=== PATIENT | female | born 1970 | race African-American/Black ===

== ENCOUNTER 2017-06-15 14:26 | Observation (INO) | payer MEDICAID ==
[~2017-06-15] VITALS: Ht 147.3 cm; Wt 64.4 kg
[2017-06-15] MEDS ORDERED: SODIUM CHLORIDE 0.9% 1,000 ML IV ONE (14:42)
[2017-06-15] MEDS ORDERED: IPRATROPIUM BROMIDE (0.02%) 0.5MG/2.5ML NEB HHN STA (14:44)
[2017-06-15] MEDS ORDERED: METHYLPREDNISOLONE SOD SUCC 125 MG/2 ML VIAL IV STA (14:44)
[2017-06-15] MEDS ORDERED: ALBUTEROL (0.083%) 2.5MG/3ML NEB HHN STA (14:44)
[2017-06-15] MEDS ORDERED: SODIUM CHLORIDE 0.9% 1000ML BAG (SEPSIS BOLUS) IV ONE (14:45)
[2017-06-15 15:41] LABS: HEMATOCRIT. 35.2 % (36.0-48.0); HEMOGLOBIN. 11.9 g/dL (12.0-16.0); MEAN CORPUSCULAR HEMOGLOBIN 29.2 pg (28.0-32.0); MEAN CORPUSCULAR VOLUME 86.1 fL (81.0-99.0); MEAN PLATELET VOLUME 8.4 fl (7.4-10.4); PLATELET 226 x1000/uL (130-400); RED CELL DISTRIBUTION WIDTH 13.2 % (11.6-14.6)
[2017-06-15 15:46] LABS: CHLORIDE 86 mEq/L (98-107)
[2017-06-15 15:47] LABS: HCG SCREEN NEGATIVE; PROTHROMBIN TIME 10.7 sec (9.4-11.6)
[2017-06-15] MEDS ORDERED: PANTOPRAZOLE SODIUM 40 MG/VIAL IV STA (15:53)
[2017-06-15] MEDS ORDERED: ACETAMINOPHEN 650MG SUPP PR ONE (16:00)
[2017-06-15 16:02] LABS: PLATELET ESTIMATE NORMAL
[2017-06-15] MEDS ORDERED: VANCOMYCIN 1 G PREMIX 200 ML IV ONE (16:15)
[2017-06-15] MEDS ORDERED: PIPERACILLIN/TAZ 3.375G PREMIX 50 ML IV ONE (16:15)
[2017-06-15 16:42] LABS: CLARITY URINE CLOUDY (CLEAR); COLOR URINE YELLOW (YELLOW); KETONES URINE NEGATIVE (NEGATIVE); LEUKOCYTE ESTERASE URINE 3+ (NEGATIVE); NITRITE URINE NEGATIVE (NEGATIVE); OCCULT BLOOD URINE 2+ (NEGATIVE); PROTEIN URINE 1+ (NEGATIVE); SPECIFIC GRAVITY URINE 1.017 (1.005-1.030); UROBILINOGEN URINE 0.2 E.U./dL (0.2-1.0)
[2017-06-15 22:00] VITALS: BP 129/60
[2017-06-15] MEDS ORDERED: DEXT 5%/0.45% NACL 1000ML 1,000 ML IV SCH (22:00)
[2017-06-15] MEDS ORDERED: SODIUM CHLORIDE 10% FOR INH 15ML VIAL NEB INH SCH (22:15)
[2017-06-15] MEDS ORDERED: IPRATROPIUM/ALBUTEROL 0.5-3(2.5)MG/3ML NEB HHN STA (22:17)
[2017-06-15 22:42] LABS: BG BASE EXCESS 5.2 mmol/L (-2.0-2.0); BG CARBOXYHEMOGLOBIN 0.3 % (0.5-1.5); BG DEOXYHEMOGLOBIN 3.2 % (0.0-5.0); BG FRACTION INSPIRED OXYGEN 30; BG HCO3 ACT 30.6 mmol/L (22.0-26.0); BG METHEMOGLOBIN 0.2 % (0.0-1.5); BG OXYGEN SATURATION 96.8 % (92.0-98.5); BG OXYHEMOGLOBIN 96.3 % (94.0-97.0); BG PCO2 48.6 mmHg (35.0-45.0); BG PH 7.417 (7.350-7.450); BG PO2 92.1 mmHg (75.0-100.0); BG SAMPLE SITE LEFT RADIAL; BG TOTAL HEMOGLOBIN 11.6 g/dL (12.0-18.0); BG VENT MODE NASAL CANNULA
[2017-06-16] VITALS (9 sets, daily range): BP systolic 120–155; BP diastolic 60–102
[2017-06-16] MEDS ORDERED: CHOL20004 PO (00:13)
[2017-06-16] MEDS ORDERED: POLY17PO3 GT (00:13)
[2017-06-16] MEDS ORDERED: KLUD20 GT (00:13)
[2017-06-16] MEDS ORDERED: FERR220S12 PO (00:13)
[2017-06-16] MEDS ORDERED: ASCO500C6 GT (00:13)
[2017-06-16] MEDS ORDERED: KEPP500 GT (00:15)
[2017-06-16] MEDS ORDERED: BISA10SU21 RC (00:18)
[2017-06-16] MEDS ORDERED: [UNRECOGNIZED DRUG - OTHER] GT (00:18)
[2017-06-16] MEDS ORDERED: OMEP40CA34 GT (00:20)
[2017-06-16] MEDS ORDERED: DEXT 5%/0.9% NACL 1,000 ML IV SCH (00:30)
[2017-06-16] MEDS ORDERED: MULT1TAB56 GT (00:46)
[2017-06-16] MEDS ORDERED: FURO-152 GT (00:46)
[2017-06-16] MEDS ORDERED: OCD GT (00:46)
[2017-06-16] MEDS ORDERED: XALAO EACHEYE (00:46)
[2017-06-16] MEDS ORDERED: CARB200T GT (00:46)
[2017-06-16] MEDS: IPRATROPIUM/ALBUTEROL 0.5-3(2.5)MG/3ML NEB HHN SCH ×4 (00:51→12:51)
[2017-06-16 08:11] LABS: HEMATOCRIT. 33.3 % (36.0-48.0); HEMOGLOBIN. 10.8 g/dL (12.0-16.0); MEAN CORPUSCULAR HEMOGLOBIN 28.4 pg (28.0-32.0); MEAN CORPUSCULAR VOLUME 87.7 fL (81.0-99.0); MEAN PLATELET VOLUME 8.5 fl (7.4-10.4); PLATELET 215 x1000/uL (130-400); RED CELL DISTRIBUTION WIDTH 13.4 % (11.6-14.6)
[2017-06-16 08:30] LABS: CHLORIDE 93 mEq/L (98-107)
[2017-06-16] MEDS ORDERED: LIDOCAINE HCL/PF 1% 10 MG/ML 5ML VIAL ONE (08:52)
[2017-06-16] MEDS ORDERED: SODIUM BICARBONATE 4% (2.4MEQ) 5ML VIAL IV ONE (08:52)
[2017-06-16] MEDS ORDERED: PANTOPRAZOLE SODIUM 40 MG/VIAL IV SCH (09:00)
[2017-06-16] MEDS ORDERED: PIPERACILLIN/TAZ 3.375G PREMIX 50 ML IV SCH (12:30)
[2017-06-16] MEDS ORDERED: DEXT 5% IV SCH (12:30)
[2017-06-16] MEDS ORDERED: WATER IV SCH (12:30)
[2017-06-16] MEDS ORDERED: VANCOMYCIN IV SCH (12:30)
[2017-06-16] MEDS ORDERED: KCL 20MEQ/100ML PREMIX 100 ML IV NR (13:30)
[2017-06-16 13:50] LABS: PLATELET ESTIMATE NORMAL
[2017-06-16] MEDS ORDERED: VANCOMYCIN 750 MG PREMIX 150 ML IV SCH (23:00)
[2017-06-17] MEDS ORDERED: VANCOMYCIN 1 G PREMIX 200 ML IV SCH (01:00)
== END 2017-06-16 17:42 | disposition still patient (30) ==
LOC: ER 14:58 → 5EST 16:29 → INTOOBSV 16:29 → EDBEDREQ 16:32 → EDBEDREQTM 16:32 → ENRESERV 19:22
PROVIDERS: ADMIT Internal Medicine; ATTEND Internal Medicine
DX: R11.10 Vomiting, unspecified (principal); J96.20 Acute and chronic respiratory failure, unspecified whether with hypoxia or hypercapnia; K92.1 Melena; K92.2 Gastrointestinal hemorrhage, unspecified; D72.829 Elevated white blood cell count, unspecified; E46 Unspecified protein-calorie malnutrition; D63.8 Anemia in other chronic diseases classified elsewhere; E87.0 Hyperosmolality and hypernatremia; G82.50 Quadriplegia, unspecified; N39.0 Urinary tract infection, site not specified; E87.6 Hypokalemia; E87.8 Other disorders of electrolyte and fluid balance, not elsewhere classified; J18.9 Pneumonia, unspecified organism; Z93.0 Tracheostomy status; Z93.1 Gastrostomy status
CPT/HCPCS: 36415; 36569; 36600; 71045; 76937; 80048; 80053; 81003; 82375; 82805; 83605; 83690; 83880; 84703; 85025; 85610; 86850; 86900; 86901; 87040; 87077; 87086; 87186; 93005; 94640; 96361; 96365; 96366; 96367; 96368; 96375; 96376; 99291; C1725; C1769; C1893; C9113; G0378; J2543; J2930; J3370; J3480; J3490; J7030; J7050; J7131; J7611; J7620; J7042; J7060; A4315

== ENCOUNTER 2018-01-10 18:16 | Inpatient (IN) | payer MEDICAID, MEDICARE ==
[~2018-01-10] VITALS: Ht 137.2 cm; Wt 65.3 kg
[~2018-01-10 18:16] MED LIST: ASCO500C6 GT; BISA10SU21 RC; CARB200T GT; CHOL20004 PO; FERR220S12 PO; FURO-152 GT; KEPP500 GT; KLUD20 GT; MULT1TAB56 GT; OCD GT; OMEP40CA34 GT; POLY17PO3 GT; XALAO EACHEYE; [UNRECOGNIZED DRUG - OTHER] GT
[2018-01-10] MEDS ORDERED: ACETAMINOPHEN 650MG SUPP PR STA (18:44)
[2018-01-10] MEDS ORDERED: PIPERACILLIN/TAZ 3.375G PREMIX 50 ML IV ONE (18:45)
[2018-01-10] MEDS ORDERED: VANCOMYCIN 1 G PREMIX 200 ML IV ONE (18:45)
[2018-01-10] MEDS ORDERED: SODIUM CHLORIDE 0.9% 1000ML BAG (SEPSIS BOLUS) IV ONE (18:45)
[2018-01-10] MEDS ORDERED: IPRATROPIUM BROMIDE (0.02%) 0.5MG/2.5ML NEB HHN STA (18:46)
[2018-01-10] MEDS ORDERED: ALBUTEROL (0.083%) 2.5MG/3ML NEB HHN STA (18:46)
[2018-01-10] MEDS ORDERED: MAGNESIUM 2 G PREMIX 50 ML IV STA (18:46)
[2018-01-10] MEDS ORDERED: METHYLPREDNISOLONE SOD SUCC 125 MG/2 ML VIAL IV STA (18:46)
[2018-01-10] MEDS ORDERED: FUROSEMIDE 40MG/4ML VIAL IVP ONE (19:45)
[2018-01-10 20:26] LABS: HEMATOCRIT. 25.2 % (36.0-48.0); HEMOGLOBIN. 8.6 g/dL (12.0-16.0); MEAN CORPUSCULAR HEMOGLOBIN 29.2 pg (28.0-32.0); MEAN CORPUSCULAR VOLUME 85.9 fL (81.0-99.0); MEAN PLATELET VOLUME 9.3 fl (7.4-10.4); PLATELET 147 x1000/uL (130-400); RED BLOOD CELL COUNT 2.93 mill/uL (4.2-5.4); RED CELL DISTRIBUTION WIDTH 14.1 % (11.6-14.6)
[2018-01-10 20:32] LABS: PROTHROMBIN TIME 10.1 sec (9.1-11.1)
[2018-01-10 20:39] LABS: HCG SCREEN NEGATIVE
[2018-01-10 20:43] LABS: PLATELET ESTIMATE NORMAL
[2018-01-10 21:14] LABS: CHLORIDE 89 mEq/L (98-107)
[2018-01-10 21:20] LABS: CLARITY URINE CLOUDY (CLEAR); COLOR URINE YELLOW (YELLOW); KETONES URINE NEGATIVE (NEGATIVE); LEUKOCYTE ESTERASE URINE 3+ (NEGATIVE); NITRITE URINE NEGATIVE (NEGATIVE); OCCULT BLOOD URINE 2+ (NEGATIVE); PH URINE 5.5 (4.5-8.0); PROTEIN URINE TRACE (NEGATIVE); SPECIFIC GRAVITY URINE 1.007 (1.005-1.030); UROBILINOGEN URINE 0.2 E.U./dL (0.2-1.0)
[2018-01-10 21:23] LABS: CARBAMAZEPINE 15.8 ug/mL (4-12)
[2018-01-11] VITALS (9 sets, daily range): BP systolic 96–130; BP diastolic 57–72
[2018-01-11] MEDS ORDERED: LORAZEPAM 0.5MG TABLET PO PRN (12:15)
[2018-01-11] MEDS ORDERED: DEXTROSE 50% WATER 50ML SYRINGE IV PRN (12:15)
[2018-01-11] MEDS ORDERED: GUAIFENESIN 200MG/10ML SUGAR FREE UDC PO PRN (12:15)
[2018-01-11] MEDS ORDERED: NA PHOS,M-B/NA PHOS,DI-BA ENEMA 118ML PR PRN (12:15)
[2018-01-11] MEDS ORDERED: CLONIDINE 0.1MG TABLET PO PRN (12:15)
[2018-01-11] MEDS ORDERED: SODIUM CHLORIDE 0.9% 1,000 ML IV SCH (12:15)
[2018-01-11] MEDS ORDERED: DOCUSATE SODIUM 100MG CAPSULE PO PRN (12:15)
[2018-01-11] MEDS ORDERED: ONDANSETRON HCL 4MG/2ML INJ IV PRN (12:15)
[2018-01-11] MEDS ORDERED: DIPHENHYDRAMINE 50MG/ML VIAL IV PRN (12:15)
[2018-01-11] MEDS ORDERED: MAGNESIUM/ALUMINUM HYDROXIDE/SIMETHICONE 30ML UDC PO PRN (12:15)
[2018-01-11] MEDS ORDERED: ACETAMINOPHEN 650MG SUPP PR PRN (12:15)
[2018-01-11] MEDS ORDERED: HYDROCODONE/ACETAMINOPHEN 5/325MG TABLET PO PRN (12:15)
[2018-01-11 12:33] LABS: BG BASE EXCESS 8.8 mmol/L (-2.0-2.0); BG CARBOXYHEMOGLOBIN 0.5 % (0.5-1.5); BG DEOXYHEMOGLOBIN 2.3 % (0.0-5.0); BG FRACTION INSPIRED OXYGEN 70; BG HCO3 ACT 34.4 mmol/L (22.0-26.0); BG METHEMOGLOBIN 0.5 % (0.0-1.5); BG OXYGEN SATURATION 97.7 % (92.0-98.5); BG OXYHEMOGLOBIN 96.7 % (94.0-97.0); BG PCO2 52.7 mmHg (35.0-45.0); BG PH 7.433 (7.350-7.450); BG PO2 95.1 mmHg (75.0-100.0); BG SAMPLE SITE LEFT BRACHIAL; BG TOTAL HEMOGLOBIN 10.6 g/dL (12.0-18.0); BG VENT MODE MASK - TRACH
[2018-01-11] MEDS: BLOOD SUGAR DIAGNOSTIC STRIP TEST SCH ×2 (12:37→17:55)
[2018-01-11] MEDS: INSULIN LISPRO 100 UNITS/ML SUBCUT SCH ×2 (12:48→18:00)
[2018-01-11] MEDS: IPRATROPIUM/ALBUTEROL 0.5-3(2.5)MG/3ML NEB INH SCH ×2 (13:47→20:49)
[2018-01-11] MEDS: LEVETIRACETAM 500 MG in SODIUM CHLORIDE 0.9% 100 ML IV SCH ×2 (13:53→21:35)
[2018-01-11] MEDS: PIPERACILLIN/TAZ 3.375G PREMIX 50 ML IV SCH ×2 (14:54→20:45)
[2018-01-11 15:42] LABS: HEMATOCRIT 25.8 % (36.0-48.0); HEMOGLOBIN 8.8 g/dL (12.0-16.0); MEAN CORPUSCULAR VOLUME 85.2 fL (81.0-99.0); PLATELET 180 x1000/uL (130-400); RED BLOOD CELL COUNT 3.03 mill/uL (4.2-5.4); RED CELL DISTRIBUTION WIDTH 14.1 % (11.6-14.6)
[2018-01-11] MEDS: VANCOMYCIN 1 G PREMIX 200 ML IV SCH (15:57)
[2018-01-11 16:52] LABS: CHLORIDE 95 mEq/L (98-107)
[2018-01-11 16:55] LABS: CARBAMAZEPINE 7.6 ug/mL (4-12)
[2018-01-12] VITALS (12 sets, daily range): BP systolic 89–144; BP diastolic 44–89
[2018-01-12] MEDS: PIPERACILLIN/TAZ 3.375G PREMIX 50 ML IV SCH ×2 (02:11→07:43)
[2018-01-12] MEDS: IPRATROPIUM/ALBUTEROL 0.5-3(2.5)MG/3ML NEB INH SCH ×5 (02:12→20:50)
[2018-01-12] MEDS: VANCOMYCIN 1 G PREMIX 200 ML IV SCH (02:50)
[2018-01-12] MEDS: BLOOD SUGAR DIAGNOSTIC STRIP TEST SCH ×5 (06:00→23:47)
[2018-01-12] MEDS: INSULIN LISPRO 100 UNITS/ML SUBCUT SCH ×4 (06:00→18:00)
[2018-01-12 07:24] LABS: HEMATOCRIT. 26.6 % (36.0-48.0); MEAN CORPUSCULAR VOLUME 85.5 fL (81.0-99.0); MEAN PLATELET VOLUME 9.3 fl (7.4-10.4); PLATELET 220 x1000/uL (130-400); RED BLOOD CELL COUNT 3.11 mill/uL (4.2-5.4); RED CELL DISTRIBUTION WIDTH 14.2 % (11.6-14.6)
[2018-01-12 08:09] LABS: CHLORIDE 98 mEq/L (98-107)
[2018-01-12 08:22] LABS: HDL CHOLESTEROL 11 mg/dL (40-59); LDL CHOLESTEROL 84 mg/dL (5-100); T4 FREE 1.17 ng/dL (0.76-1.46)
[2018-01-12] MEDS: LEVETIRACETAM 500 MG in SODIUM CHLORIDE 0.9% 100 ML IV SCH ×2 (08:50→20:52)
[2018-01-12 09:27] LABS: PLATELET ESTIMATE NORMAL
[2018-01-12 09:48] LABS: BG BASE EXCESS 5.5 mmol/L (-2.0-2.0); BG CARBOXYHEMOGLOBIN 0.7 % (0.5-1.5); BG DEOXYHEMOGLOBIN 4.1 % (0.0-5.0); BG FRACTION INSPIRED OXYGEN 70; BG HCO3 ACT 30.2 mmol/L (22.0-26.0); BG METHEMOGLOBIN 0.4 % (0.0-1.5); BG OXYGEN SATURATION 95.9 % (92.0-98.5); BG OXYHEMOGLOBIN 94.8 % (94.0-97.0); BG PCO2 44.8 mmHg (35.0-45.0); BG PH 7.446 (7.350-7.450); BG PO2 74.4 mmHg (75.0-100.0); BG SAMPLE SITE LEFT BRACHIAL; BG TOTAL HEMOGLOBIN 10.1 g/dL (12.0-18.0); BG VENT MODE MASK - AEROSOL
[2018-01-12] MEDS ORDERED: POTASSIUM CHLORIDE INJ 40 MEQ in DEXT 5% WATER 250 ML IV NR (13:00)
[2018-01-12] MEDS ORDERED: DIATR MEGLU/DIATRIZOATE SOLN 120ML ONE (13:08)
[2018-01-12] MEDS: GENTAMICIN 100MG PREMIX 50 ML IV SCH ×2 (15:00→18:04)
[2018-01-12] MEDS: METOCLOPRAMIDE HCL 10MG/2ML VIAL IV SCH (17:44)
[2018-01-12 17:49] LABS: INR 1.1; PARTIAL THROMBOPLASTIN TIME 26.4 sec (23.4-31.0); PROTHROMBIN TIME 11.1 sec (9.1-11.1)
[2018-01-12 17:52] LABS: TOTAL IRON BINDING CAPACITY 122 ug/dL (250-450)
[2018-01-12 18:27] LABS: FOLIC ACID (FOLATE) SERUM >20 ng/mL ng/mL (>5.38); VITAMIN B12 SERUM >2000 pg/mL pg/mL (211-911)
[2018-01-12 18:38] LABS: FERRITIN 4056 ng/mL (10-291)
[2018-01-13] VITALS (12 sets, daily range): BP systolic 115–159; BP diastolic 66–97
[2018-01-13] MEDS: INSULIN LISPRO 100 UNITS/ML SUBCUT SCH ×5 (00:10→23:36)
[2018-01-13] MEDS: METOCLOPRAMIDE HCL 10MG/2ML VIAL IV SCH ×5 (00:12→23:05)
[2018-01-13] MEDS: IPRATROPIUM/ALBUTEROL 0.5-3(2.5)MG/3ML NEB INH SCH ×3 (03:07→20:00)
[2018-01-13] MEDS: GENTAMICIN 100MG PREMIX 50 ML IV SCH ×2 (03:45→15:45)
[2018-01-13] MEDS: BLOOD SUGAR DIAGNOSTIC STRIP TEST SCH ×4 (06:28→23:06)
[2018-01-13 07:22] LABS: HEMATOCRIT 29.9 % (36.0-48.0); MEAN CORPUSCULAR VOLUME 86.3 fL (81.0-99.0); RED BLOOD CELL COUNT 3.46 mill/uL (4.2-5.4); RED CELL DISTRIBUTION WIDTH 14.4 % (11.6-14.6)
[2018-01-13] MEDS: IPRATROPIUM/ALBUTEROL 0.5-3(2.5)MG/3ML NEB INH PRN (07:53)
[2018-01-13] MEDS ORDERED: LIDOCAINE HCL 1% 20ML VIAL (Pyxis) INJ ONE ×2 (09:11→13:13)
[2018-01-13 09:28] LABS: CHLORIDE 113 mEq/L (98-107)
[2018-01-13] MEDS: PANTOPRAZOLE SODIUM 40 MG/VIAL IV SCH (09:49)
[2018-01-13] MEDS: LEVETIRACETAM 500 MG in SODIUM CHLORIDE 0.9% 100 ML IV SCH ×2 (09:49→20:55)
[2018-01-13 12:56] LABS: PLATELET 284 x1000/uL (130-400)
[2018-01-13] MEDS ORDERED: HEPARIN 1000 UNITS/ML 10ML ONE (13:13)
[2018-01-13] MEDS: DEXTROSE 5% WATER 1,000 ML IV SCH (14:49)
[2018-01-13] MEDS: CEFTRIAXONE 2 G in DEXT 5% WATER 100 ML IV SCH (18:43)
[2018-01-14] VITALS (14 sets, daily range): BP systolic 102–130; BP diastolic 63–79
[2018-01-14] MEDS: IPRATROPIUM/ALBUTEROL 0.5-3(2.5)MG/3ML NEB INH SCH ×4 (01:19→21:22)
[2018-01-14] MEDS: METOCLOPRAMIDE HCL 10MG/2ML VIAL IV SCH ×4 (05:40→23:04)
[2018-01-14] MEDS: BLOOD SUGAR DIAGNOSTIC STRIP TEST SCH ×4 (05:41→23:04)
[2018-01-14] MEDS: INSULIN LISPRO 100 UNITS/ML SUBCUT SCH ×4 (06:46→23:05)
[2018-01-14] MEDS: PANTOPRAZOLE SODIUM 40 MG/VIAL IV SCH (09:58)
[2018-01-14] MEDS: LEVETIRACETAM 500 MG in SODIUM CHLORIDE 0.9% 100 ML IV SCH ×2 (09:58→21:25)
[2018-01-14] MEDS: DEXTROSE 5% WATER 1,000 ML IV SCH (09:59)
[2018-01-14 16:41] LABS: HEMATOCRIT. 26.3 % (36.0-48.0); HEMOGLOBIN. 8.8 g/dL (12.0-16.0); MEAN CORPUSCULAR HEMOGLOBIN 28.8 pg (28.0-32.0); MEAN CORPUSCULAR VOLUME 85.9 fL (81.0-99.0); MEAN PLATELET VOLUME 8.7 fl (7.4-10.4); PLATELET 353 x1000/uL (130-400); RED BLOOD CELL COUNT 3.06 mill/uL (4.2-5.4); RED CELL DISTRIBUTION WIDTH 14.3 % (11.6-14.6)
[2018-01-14 16:59] LABS: CHLORIDE 112 mEq/L (98-107)
[2018-01-14] MEDS ORDERED: POTASSIUM CHLORIDE 20MEQ TABLET SR PO NR (17:45)
[2018-01-14] MEDS: CEFTRIAXONE 2 G in DEXT 5% WATER 100 ML IV SCH (17:48)
[2018-01-14 21:08] LABS: PLATELET ESTIMATE NORMAL
[2018-01-15] VITALS (12 sets, daily range): BP systolic 98–140; BP diastolic 60–90
[2018-01-15] MEDS: IPRATROPIUM/ALBUTEROL 0.5-3(2.5)MG/3ML NEB INH SCH ×3 (02:54→20:37)
[2018-01-15] MEDS: ACETAMINOPHEN 325MG TABLET PO PRN (05:38)
[2018-01-15] MEDS: METOCLOPRAMIDE HCL 10MG/2ML VIAL IV SCH (05:38)
[2018-01-15] MEDS: BLOOD SUGAR DIAGNOSTIC STRIP TEST SCH ×4 (05:39→23:16)
[2018-01-15] MEDS: DEXTROSE 5% WATER 1,000 ML IV SCH (05:39)
[2018-01-15] MEDS: INSULIN LISPRO 100 UNITS/ML SUBCUT SCH ×3 (05:50→23:23)
[2018-01-15 06:22] LABS: HEMATOCRIT 27.5 % (36.0-48.0); MEAN CORPUSCULAR HEMOGLOBIN 28.2 pg (28.0-32.0); MEAN CORPUSCULAR VOLUME 86.3 fL (81.0-99.0); PLATELET 389 x1000/uL (130-400); RED BLOOD CELL COUNT 3.19 mill/uL (4.2-5.4); RED CELL DISTRIBUTION WIDTH 14.7 % (11.6-14.6)
[2018-01-15 07:20] LABS: CHLORIDE 108 mEq/L (98-107)
[2018-01-15] MEDS: LEVETIRACETAM 500 MG in SODIUM CHLORIDE 0.9% 100 ML IV SCH ×2 (09:26→20:57)
[2018-01-15] MEDS: PANTOPRAZOLE SODIUM 40 MG/VIAL IV SCH (09:27)
[2018-01-15] MEDS ORDERED: POTASSIUM CHLORIDE INJ 50 MEQ in DEXT 5% WATER 250 ML IV NR (12:00)
[2018-01-15] MEDS: IPRATROPIUM/ALBUTEROL 0.5-3(2.5)MG/3ML NEB INH PRN ×2 (12:23→16:33)
[2018-01-15 18:32] LABS: BG CARBOXYHEMOGLOBIN 0.9 % (0.5-1.5); BG DEOXYHEMOGLOBIN 7.8 % (0.0-5.0); BG FRACTION INSPIRED OXYGEN 60; BG HCO3 ACT 31.1 mmol/L (22.0-26.0); BG METHEMOGLOBIN 0.2 % (0.0-1.5); BG OXYGEN SATURATION 92.1 % (92.0-98.5); BG OXYHEMOGLOBIN 91.1 % (94.0-97.0); BG PH 7.542 (7.350-7.450); BG PO2 57.8 mmHg (75.0-100.0); BG SAMPLE SITE RIGHT BRACHIAL; BG TOTAL HEMOGLOBIN 9.1 g/dL (12.0-18.0); BG VENT MODE MASK - TRACH
[2018-01-15] MEDS: CEFTRIAXONE 2 G in DEXT 5% WATER 100 ML IV SCH (19:13)
[2018-01-16] VITALS (15 sets, daily range): BP systolic 107–150; BP diastolic 68–87
[2018-01-16] MEDS: DEXTROSE 5% WATER 1,000 ML IV SCH ×2 (01:10→21:44)
[2018-01-16] MEDS: IPRATROPIUM/ALBUTEROL 0.5-3(2.5)MG/3ML NEB INH SCH ×3 (02:30→20:52)
[2018-01-16 03:44] LABS: BASOPHILS % 0.6 % (0.0-2.0); EOSINOPHILS % 3.5 % (0.0-5.0); HEMATOCRIT. 24.7 % (36.0-48.0); HEMOGLOBIN. 8.1 g/dL (12.0-16.0); LYMPHOCYTES % 11.7 % (20.0-50.0); MEAN CORPUSCULAR HEMOGLOBIN 28.3 pg (28.0-32.0); MEAN PLATELET VOLUME 9.6 fl (7.4-10.4); NEUTROPHILS % 74.2 % (40.0-76.0); PLATELET 335 x1000/uL (130-400); RED BLOOD CELL COUNT 2.87 mill/uL (4.2-5.4); RED CELL DISTRIBUTION WIDTH 14.4 % (11.6-14.6)
[2018-01-16 03:50] LABS: CHLORIDE 109 mEq/L (98-107)
[2018-01-16] MEDS ORDERED: POTASSIUM CHLORIDE 20MEQ TABLET SR PO SCH (04:45)
[2018-01-16] MEDS: BLOOD SUGAR DIAGNOSTIC STRIP TEST SCH ×4 (05:39→23:07)
[2018-01-16] MEDS: INSULIN LISPRO 100 UNITS/ML SUBCUT SCH ×3 (06:37→17:20)
[2018-01-16] MEDS: PANTOPRAZOLE SODIUM 40 MG/VIAL IV SCH (08:29)
[2018-01-16] MEDS: METHYLPREDNISOLONE SOD SUCC 40 MG/ML VIAL IV SCH (08:29)
[2018-01-16 09:07] LABS: BG BASE EXCESS 8.7 mmol/L (-2.0-2.0); BG CARBOXYHEMOGLOBIN 0.6 % (0.5-1.5); BG DEOXYHEMOGLOBIN 10.6 % (0.0-5.0); BG FRACTION INSPIRED OXYGEN 60; BG HCO3 ACT 32.9 mmol/L (22.0-26.0); BG METHEMOGLOBIN 0.1 % (0.0-1.5); BG OXYGEN SATURATION 89.3 % (92.0-98.5); BG OXYHEMOGLOBIN 88.7 % (94.0-97.0); BG PCO2 44.1 mmHg (35.0-45.0); BG PH 7.491 (7.350-7.450); BG PO2 53.4 mmHg (75.0-100.0); BG SAMPLE SITE LEFT RADIAL; BG VENT MODE MASK - TRACH
[2018-01-16] MEDS: LEVETIRACETAM 500 MG in SODIUM CHLORIDE 0.9% 100 ML IV SCH ×2 (10:19→21:43)
[2018-01-16] MEDS: IPRATROPIUM/ALBUTEROL 0.5-3(2.5)MG/3ML NEB INH PRN ×2 (12:29→16:09)
[2018-01-16 13:23] LABS: BG BASE EXCESS 5.4 mmol/L (-2.0-2.0); BG CARBOXYHEMOGLOBIN 0.3 % (0.5-1.5); BG DEOXYHEMOGLOBIN 0.6 % (0.0-5.0); BG FRACTION INSPIRED OXYGEN 100; BG HCO3 ACT 28.8 mmol/L (22.0-26.0); BG METHEMOGLOBIN 0.3 % (0.0-1.5); BG OXYGEN SATURATION 99.4 % (92.0-98.5); BG OXYHEMOGLOBIN 98.8 % (94.0-97.0); BG PCO2 37.6 mmHg (35.0-45.0); BG PH 7.502 (7.350-7.450); BG SAMPLE SITE LEFT RADIAL; BG TIDAL VOLUME(mL) 400 mL; BG VENT MODE VENT - A/C; BG VENT RATE 16 set
[2018-01-16 15:12] LABS: CHLORIDE 110 mEq/L (98-107)
[2018-01-16] MEDS: CEFTRIAXONE 2 G in DEXT 5% WATER 100 ML IV SCH (17:19)
[2018-01-17] VITALS (16 sets, daily range): BP systolic 102–161; BP diastolic 20–99
[2018-01-17] MEDS: IPRATROPIUM/ALBUTEROL 0.5-3(2.5)MG/3ML NEB INH SCH ×4 (02:20→20:46)
[2018-01-17] MEDS: BLOOD SUGAR DIAGNOSTIC STRIP TEST SCH ×3 (05:21→18:13)
[2018-01-17] MEDS: INSULIN LISPRO 100 UNITS/ML SUBCUT SCH ×4 (05:31→18:13)
[2018-01-17 06:48] LABS: HEMATOCRIT 25.6 % (36.0-48.0); HEMOGLOBIN 8.2 g/dL (12.0-16.0); MEAN CORPUSCULAR HEMOGLOBIN 28.5 pg (28.0-32.0); MEAN CORPUSCULAR VOLUME 88.5 fL (81.0-99.0); PLATELET 406 x1000/uL (130-400); RED BLOOD CELL COUNT 2.89 mill/uL (4.2-5.4); RED CELL DISTRIBUTION WIDTH 14.4 % (11.6-14.6)
[2018-01-17 07:34] LABS: CHLORIDE 103 mEq/L (98-107)
[2018-01-17] MEDS: LEVETIRACETAM 500 MG in SODIUM CHLORIDE 0.9% 100 ML IV SCH ×2 (08:11→21:40)
[2018-01-17] MEDS: METHYLPREDNISOLONE SOD SUCC 40 MG/ML VIAL IV SCH (08:11)
[2018-01-17] MEDS: PANTOPRAZOLE SODIUM 40 MG/VIAL IV SCH (08:11)
[2018-01-17 11:09] LABS: BG BASE EXCESS 4.8 mmol/L (-2.0-2.0); BG CARBOXYHEMOGLOBIN 0.3 % (0.5-1.5); BG DEOXYHEMOGLOBIN 9.9 % (0.0-5.0); BG FRACTION INSPIRED OXYGEN 60; BG HCO3 ACT 30.1 mmol/L (22.0-26.0); BG METHEMOGLOBIN 0.2 % (0.0-1.5); BG OXYGEN SATURATION 90.1 % (92.0-98.5); BG OXYHEMOGLOBIN 89.6 % (94.0-97.0); BG PCO2 48.5 mmHg (35.0-45.0); BG PH 7.411 (7.350-7.450); BG PO2 58.4 mmHg (75.0-100.0); BG SAMPLE SITE RIGHT BRACHIAL; BG TIDAL VOLUME(mL) 400 mL; BG TOTAL HEMOGLOBIN 9.4 g/dL (12.0-18.0); BG VENT MODE VENT - A/C; BG VENT RATE 16 set
[2018-01-17] MEDS: CEFTRIAXONE 2 G in DEXT 5% WATER 100 ML IV SCH (18:13)
[2018-01-17] MEDS: DEXTROSE 5% WATER 1,000 ML IV SCH (18:14)
[2018-01-18] VITALS (9 sets, daily range): BP systolic 112–143; BP diastolic 56–91
[2018-01-18] MEDS: BLOOD SUGAR DIAGNOSTIC STRIP TEST SCH ×4 (00:58→23:33)
[2018-01-18] MEDS: INSULIN LISPRO 100 UNITS/ML SUBCUT SCH ×5 (00:58→23:53)
[2018-01-18] MEDS: IPRATROPIUM/ALBUTEROL 0.5-3(2.5)MG/3ML NEB INH SCH ×4 (02:05→20:41)
[2018-01-18 07:11] LABS: BASOPHILS % 0.5 % (0.0-2.0); CHLORIDE 106 mEq/L (98-107); HEMATOCRIT. 23.1 % (36.0-48.0); HEMOGLOBIN. 7.6 g/dL (12.0-16.0); LYMPHOCYTES % 15.7 % (20.0-50.0); MEAN CORPUSCULAR HEMOGLOBIN 28.8 pg (28.0-32.0); MEAN CORPUSCULAR VOLUME 87.4 fL (81.0-99.0); MEAN PLATELET VOLUME 9.2 fl (7.4-10.4); MONOCYTES % 9.4 % (2.0-8.0); NEUTROPHILS % 72.4 % (40.0-76.0); PLATELET 363 x1000/uL (130-400); RED BLOOD CELL COUNT 2.64 mill/uL (4.2-5.4); RED CELL DISTRIBUTION WIDTH 14.6 % (11.6-14.6)
[2018-01-18] MEDS: METHYLPREDNISOLONE SOD SUCC 40 MG/ML VIAL IV SCH (08:27)
[2018-01-18] MEDS: PANTOPRAZOLE SODIUM 40 MG/VIAL IV SCH (08:27)
[2018-01-18] MEDS: LEVETIRACETAM 500 MG in SODIUM CHLORIDE 0.9% 100 ML IV SCH ×2 (08:42→20:48)
[2018-01-18] MEDS ORDERED: POTASSIUM CHLORIDE 20MEQ/PACKET PO NR (11:00)
[2018-01-18] MEDS: CEFEPIME 2,000 MG in DEXT 5% WATER 100 ML IV SCH (16:54)
[2018-01-18 17:28] LABS: BG BASE EXCESS 6.8 mmol/L (-2.0-2.0); BG CARBOXYHEMOGLOBIN 0.3 % (0.5-1.5); BG CPAP (cmH2O) 0 cm(H2O); BG DEOXYHEMOGLOBIN 5.3 % (0.0-5.0); BG HCO3 ACT 31.9 mmol/L (22.0-26.0); BG METHEMOGLOBIN 0.2 % (0.0-1.5); BG OXYGEN SATURATION 94.7 % (92.0-98.5); BG OXYHEMOGLOBIN 94.2 % (94.0-97.0); BG PH 7.432 (7.350-7.450); BG PO2 76.7 mmHg (75.0-100.0); BG SAMPLE SITE RIGHT BRACHIAL; BG TOTAL HEMOGLOBIN 9.4 g/dL (12.0-18.0); BG VENT MODE VENT - CPAP
[2018-01-18] MEDS ORDERED: IOHEXOL-350 100 ML BOTTLE ONE (19:01)
[2018-01-19] VITALS (11 sets, daily range): BP systolic 99–146; BP diastolic 48–96
[2018-01-19] MEDS: IPRATROPIUM/ALBUTEROL 0.5-3(2.5)MG/3ML NEB INH SCH ×4 (01:42→20:59)
[2018-01-19] MEDS: CEFEPIME 2,000 MG in DEXT 5% WATER 100 ML IV SCH ×2 (03:04→16:57)
[2018-01-19] MEDS: BLOOD SUGAR DIAGNOSTIC STRIP TEST SCH ×4 (05:41→23:36)
[2018-01-19] MEDS: INSULIN LISPRO 100 UNITS/ML SUBCUT SCH ×4 (05:46→23:41)
[2018-01-19 07:53] LABS: HEMATOCRIT 23.8 % (36.0-48.0); HEMOGLOBIN 7.9 g/dL (12.0-16.0); MEAN CORPUSCULAR VOLUME 87.5 fL (81.0-99.0); PLATELET 385 x1000/uL (130-400); RED BLOOD CELL COUNT 2.72 mill/uL (4.2-5.4); RED CELL DISTRIBUTION WIDTH 14.8 % (11.6-14.6)
[2018-01-19 08:12] LABS: CHLORIDE 106 mEq/L (98-107)
[2018-01-19] MEDS: LEVETIRACETAM 500 MG in SODIUM CHLORIDE 0.9% 100 ML IV SCH ×2 (09:10→21:16)
[2018-01-19] MEDS: METHYLPREDNISOLONE SOD SUCC 40 MG/ML VIAL IV SCH (09:10)
[2018-01-19] MEDS: PANTOPRAZOLE SODIUM 40 MG/VIAL IV SCH (09:10)
[2018-01-19 09:15] LABS: BG BASE EXCESS 9.6 mmol/L (-2.0-2.0); BG CARBOXYHEMOGLOBIN 0.3 % (0.5-1.5); BG DEOXYHEMOGLOBIN 5.3 % (0.0-5.0); BG FRACTION INSPIRED OXYGEN 50; BG HCO3 ACT 34.9 mmol/L (22.0-26.0); BG OXYGEN SATURATION 94.7 % (92.0-98.5); BG OXYHEMOGLOBIN 94.4 % (94.0-97.0); BG PCO2 51.9 mmHg (35.0-45.0); BG PH 7.445 (7.350-7.450); BG PO2 72.6 mmHg (75.0-100.0); BG PRESSURE SUPPORT 8; BG SAMPLE SITE RIGHT RADIAL; BG TOTAL HEMOGLOBIN 8.5 g/dL (12.0-18.0); BG VENT MODE VENT - CPAP
[2018-01-19 16:42] LABS: BG BASE EXCESS 6.4 mmol/L (-2.0-2.0); BG CARBOXYHEMOGLOBIN 0.1 % (0.5-1.5); BG DEOXYHEMOGLOBIN 8.7 % (0.0-5.0); BG FRACTION INSPIRED OXYGEN 60; BG HCO3 ACT 30.9 mmol/L (22.0-26.0); BG METHEMOGLOBIN 0.3 % (0.0-1.5); BG OXYGEN SATURATION 91.3 % (92.0-98.5); BG OXYHEMOGLOBIN 90.9 % (94.0-97.0); BG PCO2 44.4 mmHg (35.0-45.0); BG PO2 59.8 mmHg (75.0-100.0); BG SAMPLE SITE RIGHT BRACHIAL; BG TOTAL HEMOGLOBIN 9.2 g/dL (12.0-18.0); BG VENT MODE MASK - TRACH
[2018-01-19] MEDS: MEROPENEM 1,000 MG in SODIUM CHLORIDE 0.9% 100 ML IV SCH (19:43)
[2018-01-19] MEDS: SULFAMETHOXAZOLE/TRIMETHOPRIM 800/160MG TABLET PO SCH (21:16)
[2018-01-20] VITALS (11 sets, daily range): BP systolic 110–134; BP diastolic 75–98
[2018-01-20] MEDS: IPRATROPIUM/ALBUTEROL 0.5-3(2.5)MG/3ML NEB INH SCH ×4 (02:18→21:45)
[2018-01-20] MEDS: MEROPENEM 1,000 MG in SODIUM CHLORIDE 0.9% 100 ML IV SCH ×3 (05:54→20:52)
[2018-01-20] MEDS: INSULIN LISPRO 100 UNITS/ML SUBCUT SCH ×3 (06:08→18:08)
[2018-01-20] MEDS: BLOOD SUGAR DIAGNOSTIC STRIP TEST SCH ×3 (06:08→18:06)
[2018-01-20 07:41] LABS: BG BASE EXCESS 7.5 mmol/L (-2.0-2.0); BG CARBOXYHEMOGLOBIN 0.2 % (0.5-1.5); BG DEOXYHEMOGLOBIN 3.2 % (0.0-5.0); BG FRACTION INSPIRED OXYGEN 70; BG HCO3 ACT 32.4 mmol/L (22.0-26.0); BG METHEMOGLOBIN 0.7 % (0.0-1.5); BG OXYGEN SATURATION 96.8 % (92.0-98.5); BG OXYHEMOGLOBIN 95.9 % (94.0-97.0); BG PCO2 48.1 mmHg (35.0-45.0); BG PH 7.446 (7.350-7.450); BG PO2 89.9 mmHg (75.0-100.0); BG SAMPLE SITE LEFT RADIAL; BG VENT MODE MASK - TRACH
[2018-01-20 08:04] LABS: HEMATOCRIT 23.3 % (36.0-48.0); HEMOGLOBIN 7.7 g/dL (12.0-16.0); MEAN CORPUSCULAR HEMOGLOBIN 29.3 pg (28.0-32.0); MEAN CORPUSCULAR VOLUME 88.3 fL (81.0-99.0); PLATELET 363 x1000/uL (130-400); RED BLOOD CELL COUNT 2.63 mill/uL (4.2-5.4); RED CELL DISTRIBUTION WIDTH 14.7 % (11.6-14.6)
[2018-01-20] MEDS: SULFAMETHOXAZOLE/TRIMETHOPRIM 800/160MG TABLET PO SCH ×2 (09:31→20:51)
[2018-01-20] MEDS: PANTOPRAZOLE SODIUM 40 MG/VIAL IV SCH (09:31)
[2018-01-20] MEDS: METHYLPREDNISOLONE SOD SUCC 40 MG/ML VIAL IV SCH (09:31)
[2018-01-20] MEDS: LEVETIRACETAM 500 MG in SODIUM CHLORIDE 0.9% 100 ML IV SCH ×2 (09:59→20:51)
[2018-01-20 12:34] LABS: BG BASE EXCESS 6.6 mmol/L (-2.0-2.0); BG CARBOXYHEMOGLOBIN 0.3 % (0.5-1.5); BG HCO3 ACT 30.9 mmol/L (22.0-26.0); BG METHEMOGLOBIN 0.2 % (0.0-1.5); BG OXYGEN SATURATION 87.9 % (92.0-98.5); BG OXYHEMOGLOBIN 87.5 % (94.0-97.0); BG PCO2 43.8 mmHg (35.0-45.0); BG PH 7.467 (7.350-7.450); BG PO2 52.6 mmHg (75.0-100.0); BG SAMPLE SITE LEFT RADIAL; BG TOTAL HEMOGLOBIN 8.9 g/dL (12.0-18.0); BG VENT MODE MASK - TRACH
[2018-01-20 16:23] LABS: CHLORIDE 108 mEq/L (98-107)
[2018-01-20] MEDS ORDERED: METOPROLOL TARTRATE 25MG TABLET PO SCH (21:00)
[2018-01-21] VITALS (19 sets, daily range): BP systolic 94–163; BP diastolic 50–110
[2018-01-21] MEDS ORDERED: DILTIAZEM HCL 5MG/ML 25ML VIAL IV NR (02:30)
[2018-01-21 03:48] LABS: BG BASE EXCESS 8.3 mmol/L (-2.0-2.0); BG CARBOXYHEMOGLOBIN 0.1 % (0.5-1.5); BG DEOXYHEMOGLOBIN 5.2 % (0.0-5.0); BG FRACTION INSPIRED OXYGEN 70; BG HCO3 ACT 31.9 mmol/L (22.0-26.0); BG METHEMOGLOBIN 0.3 % (0.0-1.5); BG OXYGEN SATURATION 94.8 % (92.0-98.5); BG OXYHEMOGLOBIN 94.4 % (94.0-97.0); BG PH 7.519 (7.350-7.450); BG PO2 69.6 mmHg (75.0-100.0); BG SAMPLE SITE RIGHT RADIAL; BG TOTAL HEMOGLOBIN 9.7 g/dL (12.0-18.0); BG VENT MODE T-TUBE
[2018-01-21] MEDS: MEROPENEM 1,000 MG in SODIUM CHLORIDE 0.9% 100 ML IV SCH ×3 (05:25→21:26)
[2018-01-21] MEDS ORDERED: DILTIAZEM HCL 30MG TABLET GT SCH ×2 (06:00)
[2018-01-21] MEDS: BLOOD SUGAR DIAGNOSTIC STRIP TEST SCH ×5 (06:04→23:20)
[2018-01-21] MEDS: INSULIN LISPRO 100 UNITS/ML SUBCUT SCH ×5 (06:07→23:34)
[2018-01-21] MEDS: IPRATROPIUM/ALBUTEROL 0.5-3(2.5)MG/3ML NEB INH SCH ×4 (07:38→20:58)
[2018-01-21] MEDS: LEVETIRACETAM 500 MG in SODIUM CHLORIDE 0.9% 100 ML IV SCH ×2 (08:38→21:06)
[2018-01-21] MEDS: METHYLPREDNISOLONE SOD SUCC 40 MG/ML VIAL IV SCH ×2 (08:39→16:24)
[2018-01-21] MEDS: DILTIAZEM HCL 30MG TABLET GT SCH ×3 (08:39→21:25)
[2018-01-21] MEDS: PANTOPRAZOLE SODIUM 40 MG/VIAL IV SCH (08:39)
[2018-01-21] MEDS: SULFAMETHOXAZOLE/TRIMETHOPRIM 800/160MG TABLET PO SCH ×2 (08:39→21:06)
[2018-01-21 09:18] LABS: HEMATOCRIT 22.1 % (36.0-48.0); HEMOGLOBIN 7.1 g/dL (12.0-16.0); MEAN CORPUSCULAR HEMOGLOBIN 28.8 pg (28.0-32.0); MEAN CORPUSCULAR VOLUME 89.5 fL (81.0-99.0); PLATELET 334 x1000/uL (130-400); RED BLOOD CELL COUNT 2.47 mill/uL (4.2-5.4); RED CELL DISTRIBUTION WIDTH 15.1 % (11.6-14.6)
[2018-01-21 10:36] LABS: BG BASE EXCESS 7.8 mmol/L (-2.0-2.0); BG CARBOXYHEMOGLOBIN 0.3 % (0.5-1.5); BG DEOXYHEMOGLOBIN 6.7 % (0.0-5.0); BG FRACTION INSPIRED OXYGEN 60; BG METHEMOGLOBIN 0.6 % (0.0-1.5); BG OXYGEN SATURATION 93.2 % (92.0-98.5); BG OXYHEMOGLOBIN 92.4 % (94.0-97.0); BG PO2 68.4 mmHg (75.0-100.0); BG SAMPLE SITE LEFT RADIAL; BG TOTAL HEMOGLOBIN 9.3 g/dL (12.0-18.0); BG VENT MODE MASK - TRACH
[2018-01-21 11:57] LABS: CHLORIDE 114 mEq/L (98-107)
[2018-01-21] MEDS: IPRATROPIUM/ALBUTEROL 0.5-3(2.5)MG/3ML NEB INH PRN (16:10)
[2018-01-21] MEDS: DEXTROSE 5% WATER 1,000 ML IV SCH (16:43)
[2018-01-21] MEDS: ACETAMINOPHEN 325MG TABLET PO PRN (18:40)
[2018-01-22] VITALS (15 sets, daily range): BP systolic 113–151; BP diastolic 54–90
[2018-01-22] MEDS: METHYLPREDNISOLONE SOD SUCC 40 MG/ML VIAL IV SCH ×2 (00:16→10:02)
[2018-01-22] MEDS: IPRATROPIUM/ALBUTEROL 0.5-3(2.5)MG/3ML NEB INH SCH ×6 (01:57→20:40)
[2018-01-22] MEDS: ACETAMINOPHEN 325MG TABLET PO PRN (04:27)
[2018-01-22] MEDS: BLOOD SUGAR DIAGNOSTIC STRIP TEST SCH ×3 (05:14→18:31)
[2018-01-22] MEDS: MEROPENEM 1,000 MG in SODIUM CHLORIDE 0.9% 100 ML IV SCH ×2 (05:14→14:23)
[2018-01-22] MEDS: DILTIAZEM HCL 30MG TABLET GT SCH ×2 (05:27→14:24)
[2018-01-22 05:43] LABS: HEMATOCRIT 34.8 % (36.0-48.0); HEMOGLOBIN 11.5 g/dL (12.0-16.0); MEAN CORPUSCULAR HEMOGLOBIN 28.9 pg (28.0-32.0); PLATELET 356 x1000/uL (130-400); RED BLOOD CELL COUNT 3.99 mill/uL (4.2-5.4)
[2018-01-22 05:50] LABS: CHLORIDE 104 mEq/L (98-107)
[2018-01-22] MEDS: INSULIN LISPRO 100 UNITS/ML SUBCUT SCH ×3 (06:04→18:34)
[2018-01-22 09:26] LABS: BG CARBOXYHEMOGLOBIN 0.3 % (0.5-1.5); BG DEOXYHEMOGLOBIN 2.1 % (0.0-5.0); BG FRACTION INSPIRED OXYGEN 50; BG HCO3 ACT 30.1 mmol/L (22.0-26.0); BG METHEMOGLOBIN 0.5 % (0.0-1.5); BG OXYGEN SATURATION 97.9 % (92.0-98.5); BG OXYHEMOGLOBIN 97.1 % (94.0-97.0); BG PH 7.425 (7.350-7.450); BG PO2 110.6 mmHg (75.0-100.0); BG PRESSURE SUPPORT 14; BG SAMPLE SITE LEFT RADIAL; BG TOTAL HEMOGLOBIN 10.9 g/dL (12.0-18.0); BG VENT MODE VENT - CPAP
[2018-01-22] MEDS: SULFAMETHOXAZOLE/TRIMETHOPRIM 800/160MG TABLET PO SCH (10:01)
[2018-01-22] MEDS: LEVETIRACETAM 500 MG in SODIUM CHLORIDE 0.9% 100 ML IV SCH (10:01)
[2018-01-22] MEDS: PANTOPRAZOLE SODIUM 40 MG/VIAL IV SCH (10:01)
[2018-01-22] MEDS ORDERED: FUROSEMIDE 100MG/10ML VIAL IVP NR (14:30)
[2018-01-22 16:38] LABS: HEMATOCRIT. 31.4 % (36.0-48.0); HEMOGLOBIN. 10.3 g/dL (12.0-16.0); MEAN CORPUSCULAR HEMOGLOBIN 28.3 pg (28.0-32.0); MEAN CORPUSCULAR VOLUME 86.7 fL (81.0-99.0); MEAN PLATELET VOLUME 10.1 fl (7.4-10.4); PLATELET 352 x1000/uL (130-400); RED BLOOD CELL COUNT 3.63 mill/uL (4.2-5.4); RED CELL DISTRIBUTION WIDTH 15.5 % (11.6-14.6)
[2018-01-22] MEDS: DEXTROSE 5% WATER 1,000 ML IV SCH (18:24)
[2018-01-22 21:49] LABS: PLATELET ESTIMATE NORMAL
== END 2018-01-22 21:55 | DRG 720 ==
LOC: ER 18:32 → EDBEDREQSVC 19:47 → EDBEDREQ 19:47 → EDBEDREQTM 19:47 → EDBEDREQ 21:12 → EDBEDREQTM 21:12 → CANRESERV 01-11 07:19 → ENRESERV 01-11 07:19 → EDBEDREQSVC 01-11 07:51 → EDBEDREQDT 01-11 07:51 → EDBEDREQTM 01-11 07:51 → EDBEDREQ 01-11 07:51 → 5EST 01-11 07:52 → ENRESERV 01-11 08:49 → 5EST 01-11 12:31
PROVIDERS: ADMIT Internal Medicine; ATTEND Internal Medicine
PROC: 06H033Z Insertion of Infusion Device into Inferior Vena Cava, Percutaneous Approach (ICD-10-PCS; 2018-01-13)
PROC: B549ZZA Ultrasonography of Inferior Vena Cava, Guidance (ICD-10-PCS; 2018-01-13)
PROC: 5A1945Z Respiratory Ventilation, 24-96 Consecutive Hours (ICD-10-PCS; 2018-01-16)
PROC: 0BH17EZ Insertion of Endotracheal Airway into Trachea, Via Natural or Artificial Opening (ICD-10-PCS; 2018-01-16)
PROC: 30233N1 Transfusion of Nonautologous Red Blood Cells into Peripheral Vein, Percutaneous Approach (ICD-10-PCS; principal; 2018-01-21)
PROC: 5A1945Z Respiratory Ventilation, 24-96 Consecutive Hours (ICD-10-PCS; 2018-01-21)
DX: A41.51 Sepsis due to Escherichia coli [E. coli] (principal); R65.21 Severe sepsis with septic shock; J96.11 Chronic respiratory failure with hypoxia; J15.5 Pneumonia due to Escherichia coli; G93.49 Other encephalopathy; E44.0 Moderate protein-calorie malnutrition; J96.12 Chronic respiratory failure with hypercapnia; E87.0 Hyperosmolality and hypernatremia; K66.8 Other specified disorders of peritoneum; I50.9 Heart failure, unspecified; J44.0 Chronic obstructive pulmonary disease with (acute) lower respiratory infection; K56.7 Ileus, unspecified; E87.1 Hypo-osmolality and hyponatremia; E86.0 Dehydration; N39.0 Urinary tract infection, site not specified; F79 Unspecified intellectual disabilities; E87.6 Hypokalemia; D64.9 Anemia, unspecified; R47.02 Dysphasia; R62.50 Unspecified lack of expected normal physiological development in childhood; G40.909 Epilepsy, unspecified, not intractable, without status epilepticus; B96.20 Unspecified Escherichia coli [E. coli] as the cause of diseases classified elsewhere; K44.9 Diaphragmatic hernia without obstruction or gangrene; H40.9 Unspecified glaucoma; I47.1 Supraventricular tachycardia; Z16.23 Resistance to quinolones and fluoroquinolones; B96.89 Other specified bacterial agents as the cause of diseases classified elsewhere; T42.1X5A Adverse effect of iminostilbenes, initial encounter; Y92.89 Other specified places as the place of occurrence of the external cause; Z88.8 Allergy status to other drugs, medicaments and biological substances; Z68.34 Body mass index [BMI] 34.0-34.9, adult; Z93.0 Tracheostomy status
CPT/HCPCS: 36415; 36569; 36600; 51702; 71045; 71275; 74018; 74176; 74250; 76700; 76937; 80048; 80061; 80156; 82270; 82375; 82542; 82607; 82728; 82746; 82805; 82962; 83036; 83540; 83550; 83605; 83735; 83880; 84145; 84439; 84443; 84484; 84703; 85027; 85379; 86850; 86900; 86920; 87070; 87077; 87186; 93005; 93306; 93970; 94002; 94003; 94640; 96365; 96366; 96367; 96368; 96375; 99291; C1725; C9113; J0692; J0696; J1200; J1580; J1644; J1815; J1940; J1953; J2185; J2543; J2765; J2920; J2930; J3370; J3475; J3480; J3490; J7030; J7050; J7060; J7070; J7611; J7620; P9016; Q9963; Q9967

== ENCOUNTER 2023-07-07 12:11 | Inpatient (IN) | payer MEDICAID, MEDICARE ==
[2023-07-07] VITALS (25 sets, daily range): BP systolic 66–151; BP diastolic 54–116; PULSE 54–98; RESP 5–27; TEMP 98.6
[~2023-07-07] VITALS: Ht 134.6 cm; Wt 63.0 kg
[~2023-07-07 12:11] MED LIST changes: -KLUD20 GT; +OMEP40CA20 GT; -OMEP40CA34 GT; +POTA20LI52 GT
[2023-07-07] MEDS: SODIUM CHLORIDE 0.9% 1000ML BAG (SEPSIS BOLUS) IV ONE (13:24)
[2023-07-07] MEDS: PROPOFOL 10MG/ML 100ML 100 ML IV STA (13:24)
[2023-07-07] MEDS: NOREPINEPHRINE 8MG/250ML PMX 250 ML IV ONE ×2 (13:46→17:04)
[2023-07-07 13:56] LABS: CHLORIDE 94 mEq/L (98-107); POTASSIUM 3.3 mEq/L (3.5-5.1); SODIUM 128 mEq/L (136-145)
[2023-07-07 13:57] LABS: CALCIUM 8.9 mg/dL (8.7-10.4); CARBON DIOXIDE 31 mEq/L (21-32); HEMATOCRIT. 37.8 % (36.0-48.0); HEMOGLOBIN. 12.3 g/dL (12.0-16.0); MEAN CORPUSCULAR HEMOGLOBIN 28.5 pg (28.0-32.0); MEAN CORPUSCULAR HGB CONC 32.5 g/dL (31.0-37.0); MEAN CORPUSCULAR VOLUME 87.8 fL (81.0-99.0); PLATELET 249 x1000/uL (130-400); RED BLOOD CELL COUNT 4.31 mill/uL (4.2-5.4); RED CELL DISTRIBUTION WIDTH 14.2 % (11.6-14.6); WHITE BLOOD COUNT 11.2 x1000/uL (4.5-11.0)
[2023-07-07 13:59] LABS: DIFFERENTIAL COMMENT 1
[2023-07-07 14:02] LABS: CREATININE 0.4 mg/dL (0.6-1.0); GLUCOSE 115 mg/dL (70-105); UREA NITROGEN BLOOD 15 mg/dL (9-23)
[2023-07-07 14:03] LABS: TROPONIN I HIGH SENSITIVITY 31 ng/L (3.0-34)
[2023-07-07 14:04] LABS: ALANINE AMINOTRANSFERASE 14 IU/L (10-49); ALBUMIN 3.6 g/dL (3.2-4.8); ASPARTATE AMINOTRANSFERASE 20 IU/L (<34); BILIRUBIN TOTAL 0.2 mg/dL (0.1-1.0); PROTEIN TOTAL 7.1 g/dL (6.0-8.3)
[2023-07-07 14:06] LABS: INR 0.9; PROTHROMBIN TIME 10.2 sec (9.6-11.0)
[2023-07-07] MEDS: PIPERACILLIN/TAZO 3.375G/50ML 50 ML IV ONE (14:07)
[2023-07-07] MEDS: VANCOMYCIN 1G PREMIX 200 ML IV ONE (14:46)
[2023-07-07 15:26] LABS: PLATELET ESTIMATE NORMAL
[2023-07-07 15:32] LABS: BG BASE EXCESS -1.7 mmol/L (-2.0-2.0); BG CARBOXYHEMOGLOBIN 0.6 % (0.5-1.5); BG DEOXYHEMOGLOBIN 14.8 % (0.0-5.0); BG FRACTION INSPIRED OXYGEN 100; BG HCO3 ACT 29.9 mmol/L (22.0-26.0); BG METHEMOGLOBIN 0.3 % (0.0-1.5); BG OXYGEN SATURATION 85.1 % (92.0-98.5); BG OXYHEMOGLOBIN 84.3 % (94.0-97.0); BG PCO2 90.3 mmHg (35.0-45.0); BG PH 7.138 (7.350-7.450); BG PO2 60.9 mmHg (75.0-100.0); BG SAMPLE SITE LEFT RADIAL; BG VENT MODE VENT - AC
[2023-07-07] MEDS: LIDOCAINE HCL/EPINEPHRINE 1%-EPI 1:100,000 20 ML VIAL INFIL ONE (15:57)
[2023-07-07] MEDS ORDERED: PROPOFOL 10MG/ML 100ML 100 ML IV STA (16:55)
[2023-07-07] MEDS ORDERED: AZITHROMYCIN 500MG/250ML 250 ML IV SCH (18:15)
[2023-07-07] MEDS ORDERED: MEROPENEM 1G/100ML 100 ML IV SCH (19:00)
[2023-07-07 19:03] LABS: BG BASE EXCESS -3.3 mmol/L (-2.0-2.0); BG CARBOXYHEMOGLOBIN 0.1 % (0.5-1.5); BG DEOXYHEMOGLOBIN 9.6 % (0.0-5.0); BG FRACTION INSPIRED OXYGEN 100; BG HCO3 ACT 26.1 mmol/L (22.0-26.0); BG METHEMOGLOBIN 0.2 % (0.0-1.5); BG OXYGEN SATURATION 90.4 % (92.0-98.5); BG OXYHEMOGLOBIN 90.1 % (94.0-97.0); BG PCO2 66.8 mmHg (35.0-45.0); BG PH 7.209 (7.350-7.450); BG PO2 66.9 mmHg (75.0-100.0); BG SAMPLE SITE LEFT RADIAL; BG TOTAL HEMOGLOBIN 14.1 g/dL (12.0-18.0); BG VENT MODE VENT - AC
[2023-07-07] MEDS: NOREPINEPHRINE 8MG/250ML PMX 250 ML IV PRN (22:04)
[2023-07-07] MEDS: PROPOFOL 10MG/ML 100ML 100 ML IV PRN (22:04)
[2023-07-07] MEDS ORDERED: SODIUM CHLORIDE 10% FOR INH 15ML NEB INH NR (22:30)
[2023-07-07] MEDS ORDERED: ONDANSETRON HCL 4MG/2ML INJ IV PRN (23:30)
[2023-07-07] MEDS: PANTOPRAZOLE SODIUM 40 MG/VIAL IV SCH (23:54)
[2023-07-07] MEDS: SODIUM CHLORIDE 0.9% 1,000 ML IV SCH (23:54)
[2023-07-08] VITALS (118 sets, daily range): BP systolic 63–155; BP diastolic 33–94; PULSE 45–110; RESP 11–29; TEMP 97.1–98.3
[2023-07-08] MEDS: IPRATROPIUM/ALBUTEROL 0.5-3(2.5)MG/3ML NEB HHN SCH (02:50)
[2023-07-08 06:50] LABS: HEMOGLOBIN. 9.5 g/dL (12.0-16.0); MEAN CORPUSCULAR HEMOGLOBIN 29.7 pg (28.0-32.0); MEAN CORPUSCULAR HGB CONC 32.9 g/dL (31.0-37.0); MEAN CORPUSCULAR VOLUME 90.1 fL (81.0-99.0); PLATELET 162 x1000/uL (130-400); RED BLOOD CELL COUNT 3.21 mill/uL (4.2-5.4); RED CELL DISTRIBUTION WIDTH 14.1 % (11.6-14.6); WHITE BLOOD COUNT 14.7 x1000/uL (4.5-11.0)
[2023-07-08 07:01] LABS: DIFFERENTIAL COMMENT 1
[2023-07-08 07:23] LABS: CHLORIDE 101 mEq/L (98-107); POTASSIUM 3.1 mEq/L (3.5-5.1); SODIUM 133 mEq/L (136-145)
[2023-07-08 07:24] LABS: CARBON DIOXIDE 26 mEq/L (21-32)
[2023-07-08 07:28] LABS: CREATINE KINASE MB FRACTION 12.9 ng/mL (0.5-3.6)
[2023-07-08 07:29] LABS: CREATININE 0.5 mg/dL (0.6-1.0); GLUCOSE 187 mg/dL (70-105); UREA NITROGEN BLOOD 14 mg/dL (9-23)
[2023-07-08 07:30] LABS: CREATINE KINASE 421 IU/L (34-145)
[2023-07-08] MEDS: LEVETIRACETAM 500MG TABLET GT SCH (08:43)
[2023-07-08] MEDS: ENOXAPARIN 40MG/0.4ML SYR SUBCUT SCH (08:47)
[2023-07-08] MEDS ORDERED: CARBAMAZEPINE 200MG TABLET GT SCH (09:00)
[2023-07-08 09:07] LABS: TROPONIN I HIGH SENSITIVITY 130 ng/L (3.0-34)
[2023-07-08 09:23] LABS: BG CARBOXYHEMOGLOBIN 0.3 % (0.5-1.5); BG DEOXYHEMOGLOBIN 1.4 % (0.0-5.0); BG FRACTION INSPIRED OXYGEN 80; BG METHEMOGLOBIN 0.2 % (0.0-1.5); BG OXYGEN SATURATION 98.6 % (92.0-98.5); BG OXYHEMOGLOBIN 98.1 % (94.0-97.0); BG PCO2 47.2 mmHg (35.0-45.0); BG PH 7.341 (7.350-7.450); BG PO2 137.2 mmHg (75.0-100.0); BG SAMPLE SITE RIGHT RADIAL; BG TOTAL HEMOGLOBIN 9.5 g/dL (12.0-18.0); BG TOTAL RESPIRATORY RATE 17 b/min; BG VENT MODE VENT - AC
[2023-07-08] MEDS: CARBAMAZEPINE 100 MG/5 ML GT SCH (12:40)
[2023-07-08] MEDS: AZITHROMYCIN 500MG/250ML 250 ML IV SCH (12:41)
[2023-07-08] MEDS: NOREPINEPHRINE 32 MG in DEXT 5% WATER 218 ML IV PRN (13:52)
[2023-07-08] MEDS: MEROPENEM 1G/100ML 100 ML IV SCH (14:52)
[2023-07-08] MEDS: THEOPHYLLINE ANHYDROUS 80 MG/15 ML 120ML PO SCH (14:53)
[2023-07-08 15:20] LABS: PLATELET ESTIMATE NORMAL
[2023-07-08] MEDS ORDERED: PHENYLEPHRINE 50MG/250ML PMX 250 ML IV PRN (17:00)
[2023-07-08 17:28] LABS: CREATINE KINASE MB FRACTION 9.9 ng/mL (0.5-3.6)
[2023-07-08] MEDS: METHYLPREDNISOLONE SOD SUCC 40MG/ML (ACT-O-VIAL) IV SCH (17:38)
[2023-07-09] VITALS (94 sets, daily range): BP systolic 89–153; BP diastolic 53–94; PULSE 60–121; RESP 12–26; TEMP 98.2–98.8
[2023-07-09 06:24] LABS: HEMATOCRIT. 22.5 % (36.0-48.0); HEMOGLOBIN. 7.5 g/dL (12.0-16.0); MEAN CORPUSCULAR HEMOGLOBIN 29.7 pg (28.0-32.0); MEAN CORPUSCULAR HGB CONC 33.3 g/dL (31.0-37.0); MEAN CORPUSCULAR VOLUME 89.4 fL (81.0-99.0); MEAN PLATELET VOLUME 9.9 fl (7.4-10.4); PLATELET 176 x1000/uL (130-400); RED BLOOD CELL COUNT 2.52 mill/uL (4.2-5.4); RED CELL DISTRIBUTION WIDTH 14.5 % (11.6-14.6); WHITE BLOOD COUNT 18.6 x1000/uL (4.5-11.0)
[2023-07-09 06:34] LABS: DIFFERENTIAL COMMENT 1
[2023-07-09 06:38] LABS: CHLORIDE 107 mEq/L (98-107); POTASSIUM 3.1 mEq/L (3.5-5.1); SODIUM 136 mEq/L (136-145)
[2023-07-09 06:39] LABS: CALCIUM 8.3 mg/dL (8.7-10.4); CARBON DIOXIDE 24 mEq/L (21-32)
[2023-07-09 06:44] LABS: CREATININE 0.4 mg/dL (0.6-1.0); GLUCOSE 184 mg/dL (70-105); UREA NITROGEN BLOOD 10 mg/dL (9-23)
[2023-07-09 13:49] LABS: BG FRACTION INSPIRED OXYGEN 100; BG PCO2 25.2 mmHg (35.0-45.0); BG PH 7.421 (7.350-7.450); BG PO2 161.4 mmHg (75.0-100.0); BG SAMPLE SITE LEFT RADIAL; BG TOTAL RESPIRATORY RATE 17 b/min; BG VENT MODE VENT - AC
[2023-07-09 17:08] LABS: PLATELET ESTIMATE NORMAL
[2023-07-10] VITALS (102 sets, daily range): BP systolic 85–157; BP diastolic 49–143; PULSE 53–115; RESP 10–30; TEMP 96.5–98.7
[2023-07-10 10:00] LABS: BG BASE EXCESS 2.7 mmol/L (-2.0-2.0); BG CARBOXYHEMOGLOBIN 0.3 % (0.5-1.5); BG DEOXYHEMOGLOBIN 3.9 % (0.0-5.0); BG FRACTION INSPIRED OXYGEN 70; BG HCO3 ACT 27.3 mmol/L (22.0-26.0); BG METHEMOGLOBIN 0.3 % (0.0-1.5); BG OXYGEN SATURATION 96.1 % (92.0-98.5); BG OXYHEMOGLOBIN 95.5 % (94.0-97.0); BG PCO2 42.2 mmHg (35.0-45.0); BG PH 7.428 (7.350-7.450); BG PO2 76.3 mmHg (75.0-100.0); BG SAMPLE SITE LEFT RADIAL; BG TOTAL HEMOGLOBIN 7.4 g/dL (12.0-18.0); BG VENT MODE VENT - AC
[2023-07-10 11:06] LABS: MEAN CORPUSCULAR HEMOGLOBIN 29.6 pg (28.0-32.0); MEAN CORPUSCULAR HGB CONC 34.1 g/dL (31.0-37.0); MEAN CORPUSCULAR VOLUME 86.6 fL (81.0-99.0); MEAN PLATELET VOLUME 9.1 fl (7.4-10.4); PLATELET 137 x1000/uL (130-400); RED BLOOD CELL COUNT 2.28 mill/uL (4.2-5.4); RED CELL DISTRIBUTION WIDTH 14.2 % (11.6-14.6); WHITE BLOOD COUNT 15.5 x1000/uL (4.5-11.0)
[2023-07-10 11:07] LABS: DIFFERENTIAL COMMENT 1
[2023-07-10 11:10] LABS: HEMATOCRIT. 19.8 % (36.0-48.0); HEMOGLOBIN. 6.8 g/dL (12.0-16.0)
[2023-07-10 11:13] LABS: CREATININE 0.3 mg/dL (0.6-1.0); GLUCOSE 156 mg/dL (70-105)
[2023-07-10 11:14] LABS: UREA NITROGEN BLOOD < 5 mg/dL (9-23)
[2023-07-10 11:15] LABS: ALANINE AMINOTRANSFERASE 18 IU/L (10-49); ALBUMIN 2.7 g/dL (3.2-4.8); ASPARTATE AMINOTRANSFERASE 31 IU/L (<34); BILIRUBIN TOTAL 0.2 mg/dL (0.1-1.0); PROTEIN TOTAL 5.4 g/dL (6.0-8.3)
[2023-07-10 13:13] LABS: PLATELET ESTIMATE NORMAL
[2023-07-10 14:18] LABS: CARBON DIOXIDE 30 mEq/L (21-32); CHLORIDE 106 mEq/L (98-107); SODIUM 140 mEq/L (136-145)
[2023-07-10 14:19] LABS: CALCIUM 8.6 mg/dL (8.7-10.4)
[2023-07-10 14:22] LABS: POTASSIUM 2.1 mEq/L (3.5-5.1)
[2023-07-10] MEDS ORDERED: KCL 20MEQ/100ML PREMIX 100 ML IV ONE (15:00)
[2023-07-10] MEDS: KCL 20MEQ/100ML PREMIX 100 ML IV SCH (15:26)
[2023-07-11] VITALS (102 sets, daily range): BP systolic 85–201; BP diastolic 61–148; PULSE 52–95; RESP 3–31; TEMP 96.2–98.1
[2023-07-11 05:46] LABS: HEMATOCRIT. 24.7 % (36.0-48.0); HEMOGLOBIN. 8.7 g/dL (12.0-16.0); MEAN CORPUSCULAR HEMOGLOBIN 30.9 pg (28.0-32.0); MEAN CORPUSCULAR HGB CONC 35.2 g/dL (31.0-37.0); MEAN CORPUSCULAR VOLUME 87.8 fL (81.0-99.0); MEAN PLATELET VOLUME 9.8 fl (7.4-10.4); PLATELET 120 x1000/uL (130-400); RED BLOOD CELL COUNT 2.81 mill/uL (4.2-5.4); RED CELL DISTRIBUTION WIDTH 14.5 % (11.6-14.6); WHITE BLOOD COUNT 9.4 x1000/uL (4.5-11.0)
[2023-07-11 06:12] LABS: CARBON DIOXIDE 28 mEq/L (21-32); CHLORIDE 108 mEq/L (98-107); POTASSIUM 3.1 mEq/L (3.5-5.1); SODIUM 143 mEq/L (136-145)
[2023-07-11 06:13] LABS: CALCIUM 8.9 mg/dL (8.7-10.4)
[2023-07-11 06:17] LABS: CREATININE 0.3 mg/dL (0.6-1.0)
[2023-07-11 06:18] LABS: GLUCOSE 120 mg/dL (70-105)
[2023-07-11 06:20] LABS: PHOSPHORUS 1.2 mg/dL (2.5-4.9)
[2023-07-11 06:21] LABS: UREA NITROGEN BLOOD < 5 mg/dL (9-23)
[2023-07-11 06:46] LABS: DIFFERENTIAL COMMENT 1
[2023-07-11 11:01] LABS: ANISOCYTOSIS 1+; PLATELET ESTIMATE SLIGHTLY DECREASED
[2023-07-11] MEDS: IPRATROPIUM/ALBUTEROL 0.5-3(2.5)MG/3ML NEB HHN PRN (12:14)
[2023-07-11] MEDS: KCL 20MEQ/100ML PREMIX 100 ML IV SCH (14:11)
[2023-07-12] VITALS (104 sets, daily range): BP systolic 79–156; BP diastolic 60–121; PULSE 70–110; RESP 13–33; TEMP 97.5–97.8
[2023-07-12 05:31] LABS: BASOPHILS % 0.1 % (0.0-2.0); HEMATOCRIT. 28.5 % (36.0-48.0); HEMOGLOBIN. 9.8 g/dL (12.0-16.0); LYMPHOCYTES % 9.8 % (20.0-50.0); MEAN CORPUSCULAR HEMOGLOBIN 30.5 pg (28.0-32.0); MEAN CORPUSCULAR HGB CONC 34.2 g/dL (31.0-37.0); MONOCYTES % 8.1 % (2.0-8.0); PLATELET 131 x1000/uL (130-400); RED BLOOD CELL COUNT 3.21 mill/uL (4.2-5.4); RED CELL DISTRIBUTION WIDTH 15.5 % (11.6-14.6)
[2023-07-12 05:34] LABS: CHLORIDE 113 mEq/L (98-107); POTASSIUM 3.5 mEq/L (3.5-5.1); SODIUM 145 mEq/L (136-145)
[2023-07-12 05:35] LABS: CALCIUM 8.9 mg/dL (8.7-10.4); CARBON DIOXIDE 28 mEq/L (21-32)
[2023-07-12 05:40] LABS: CREATININE 0.3 mg/dL (0.6-1.0); GLUCOSE 110 mg/dL (70-105); UREA NITROGEN BLOOD 7 mg/dL (9-23)
[2023-07-12 06:25] LABS: DIFFERENTIAL COMMENT 1
[2023-07-12 09:23] LABS: BG BASE EXCESS 1.6 mmol/L (-2.0-2.0); BG CARBOXYHEMOGLOBIN 0.3 % (0.5-1.5); BG DEOXYHEMOGLOBIN 10.6 % (0.0-5.0); BG FRACTION INSPIRED OXYGEN 45; BG HCO3 ACT 26.6 mmol/L (22.0-26.0); BG METHEMOGLOBIN 0.3 % (0.0-1.5); BG OXYGEN SATURATION 89.3 % (92.0-98.5); BG OXYHEMOGLOBIN 88.8 % (94.0-97.0); BG PCO2 44.2 mmHg (35.0-45.0); BG PH 7.398 (7.350-7.450); BG PO2 54.7 mmHg (75.0-100.0); BG SAMPLE SITE RIGHT RADIAL; BG TOTAL HEMOGLOBIN 9.6 g/dL (12.0-18.0); BG TOTAL RESPIRATORY RATE 16 b/min; BG VENT MODE VENT - AC
[2023-07-12] MEDS: MAGNESIUM 2 G PREMIX 50 ML IV SCH (10:39)
[2023-07-12] MEDS: POTASSIUM PHOSPHATE 30 MMOL in DEXT 5% WATER 490 ML IV SCH (12:14)
[2023-07-12] MEDS: LORAZEPAM 2MG/ML INJ IV NR (18:36)
[2023-07-13] VITALS (96 sets, daily range): BP systolic 87–157; BP diastolic 64–141; PULSE 78–118; RESP 14–34; TEMP 97.4–97.9
[2023-07-13] MEDS: ACETYLCYSTEINE 200MG/ML 20% VIAL 4ML INH SCH (00:50)
[2023-07-13 06:13] LABS: CARBON DIOXIDE 26 mEq/L (21-32); CHLORIDE 113 mEq/L (98-107); POTASSIUM 4.1 mEq/L (3.5-5.1); SODIUM 146 mEq/L (136-145)
[2023-07-13 06:14] LABS: CALCIUM 8.9 mg/dL (8.7-10.4)
[2023-07-13 06:16] LABS: HEMATOCRIT. 29.3 % (36.0-48.0); HEMOGLOBIN. 9.9 g/dL (12.0-16.0); MEAN CORPUSCULAR HEMOGLOBIN 30.1 pg (28.0-32.0); MEAN CORPUSCULAR HGB CONC 33.6 g/dL (31.0-37.0); MEAN CORPUSCULAR VOLUME 89.5 fL (81.0-99.0); MEAN PLATELET VOLUME 10.7 fl (7.4-10.4); PLATELET 168 x1000/uL (130-400); RED BLOOD CELL COUNT 3.28 mill/uL (4.2-5.4); RED CELL DISTRIBUTION WIDTH 15.4 % (11.6-14.6); WHITE BLOOD COUNT 12.3 x1000/uL (4.5-11.0)
[2023-07-13 06:18] LABS: CREATININE 0.3 mg/dL (0.6-1.0); GLUCOSE 138 mg/dL (70-105)
[2023-07-13 06:19] LABS: UREA NITROGEN BLOOD 9 mg/dL (9-23)
[2023-07-13 06:21] LABS: PHOSPHORUS 2.8 mg/dL (2.5-4.9)
[2023-07-13 06:53] LABS: DIFFERENTIAL COMMENT 1
[2023-07-13 08:10] LABS: BG BASE EXCESS 0.5 mmol/L (-2.0-2.0); BG CARBOXYHEMOGLOBIN 0.3 % (0.5-1.5); BG DEOXYHEMOGLOBIN 3.8 % (0.0-5.0); BG FRACTION INSPIRED OXYGEN 55; BG HCO3 ACT 25.6 mmol/L (22.0-26.0); BG METHEMOGLOBIN 0.4 % (0.0-1.5); BG OXYGEN SATURATION 96.2 % (92.0-98.5); BG OXYHEMOGLOBIN 95.5 % (94.0-97.0); BG PCO2 43.4 mmHg (35.0-45.0); BG PH 7.389 (7.350-7.450); BG PO2 84.3 mmHg (75.0-100.0); BG SAMPLE SITE RIGHT RADIAL; BG TOTAL HEMOGLOBIN 9.5 g/dL (12.0-18.0); BG TOTAL RESPIRATORY RATE 25 b/min; BG VENT MODE VENT - AC
[2023-07-13 10:21] LABS: NUCLEATED RED BLOOD CELLS 4 /100 WBC
[2023-07-13 10:22] LABS: ANISOCYTOSIS 1+; PLATELET ESTIMATE NORMAL
[2023-07-13] MEDS ORDERED: LIDOCAINE HCL 1% 10 MG/ML 10ML VIAL ONE (12:40)
[2023-07-13] MEDS ORDERED: DIATR MEGLU/DIATRIZOATE SOLN 30ML ONE (13:36)
[2023-07-13] MEDS: LEVETIRACETAM 500MG/5ML CUP GT SCH (20:55)
[2023-07-14] VITALS (45 sets, daily range): BP systolic 88–159; BP diastolic 57–118; PULSE 54–94; RESP 11–32; TEMP 95–98.4
[2023-07-14 05:21] LABS: HEMATOCRIT. 27.4 % (36.0-48.0); HEMOGLOBIN. 9.4 g/dL (12.0-16.0); MEAN CORPUSCULAR HEMOGLOBIN 30.6 pg (28.0-32.0); MEAN CORPUSCULAR HGB CONC 34.2 g/dL (31.0-37.0); MEAN CORPUSCULAR VOLUME 89.6 fL (81.0-99.0); MEAN PLATELET VOLUME 10.3 fl (7.4-10.4); PLATELET 105 x1000/uL (130-400); RED BLOOD CELL COUNT 3.06 mill/uL (4.2-5.4); RED CELL DISTRIBUTION WIDTH 15.6 % (11.6-14.6); WHITE BLOOD COUNT 8.9 x1000/uL (4.5-11.0)
[2023-07-14 05:24] LABS: CALCIUM 8.8 mg/dL (8.7-10.4); CARBON DIOXIDE 31 mEq/L (21-32); CHLORIDE 111 mEq/L (98-107); POTASSIUM 3.5 mEq/L (3.5-5.1); SODIUM 147 mEq/L (136-145)
[2023-07-14 05:29] LABS: IRON 41 ug/dL (50-170)
[2023-07-14 05:30] LABS: GLUCOSE 123 mg/dL (70-105); UREA NITROGEN BLOOD 7 mg/dL (9-23)
[2023-07-14 05:32] LABS: TOTAL IRON BINDING CAPACITY 151 ug/dl (250-425)
[2023-07-14 05:38] LABS: FERRITIN 993 ng/mL (10-291); FOLIC ACID (FOLATE) SERUM 17.22 ng/mL (>5.38); VITAMIN B12 SERUM 1886 pg/mL (211-911)
[2023-07-14 05:45] LABS: CREATININE 0.2 mg/dL (0.6-1.0)
[2023-07-14 06:56] LABS: DIFFERENTIAL COMMENT 1
[2023-07-14 10:52] LABS: NUCLEATED RED BLOOD CELLS 1 /100 WBC; PLATELET ESTIMATE DECREASED
[2023-07-14 10:54] LABS: ANISOCYTOSIS 1+
[2023-07-15] VITALS (20 sets, daily range): BP systolic 91–138; BP diastolic 62–90; PULSE 69–110; RESP 14–26; TEMP 96.8–97.5
[2023-07-16] VITALS (23 sets, daily range): BP systolic 110–162; BP diastolic 69–100; PULSE 79–113; RESP 15–27; TEMP 97–97.7
[2023-07-16 06:43] LABS: HEMATOCRIT. 23.4 % (36.0-48.0); MEAN CORPUSCULAR HEMOGLOBIN 30.2 pg (28.0-32.0); MEAN CORPUSCULAR VOLUME 88.9 fL (81.0-99.0); MEAN PLATELET VOLUME 9.9 fl (7.4-10.4); PLATELET 100 x1000/uL (130-400); RED BLOOD CELL COUNT 2.63 mill/uL (4.2-5.4); RED CELL DISTRIBUTION WIDTH 15.4 % (11.6-14.6)
[2023-07-16 07:00] LABS: DIFFERENTIAL COMMENT 1
[2023-07-16 07:04] LABS: CARBON DIOXIDE 32 mEq/L (21-32); CHLORIDE 113 mEq/L (98-107); SODIUM 148 mEq/L (136-145)
[2023-07-16 07:05] LABS: CALCIUM 7.2 mg/dL (8.7-10.4)
[2023-07-16 07:10] LABS: GLUCOSE 106 mg/dL (70-105); UREA NITROGEN BLOOD 7 mg/dL (9-23)
[2023-07-16 07:53] LABS: CREATININE < 0.2 mg/dL (0.6-1.0); POTASSIUM 2.8 mEq/L (3.5-5.1)
[2023-07-16] MEDS: POTASSIUM CHLORIDE 10MEQ TABLET SR PO NR (09:12)
[2023-07-16] MEDS: KCL 10MEQ/50ML PREMIX 50 ML IV SCH (10:42)
[2023-07-16 16:13] LABS: NUCLEATED RED BLOOD CELLS 1 /100 WBC
[2023-07-16 16:14] LABS: ANISOCYTOSIS 1+; PLATELET ESTIMATE DECREASED
[2023-07-16] MEDS: ACETAMINOPHEN 325MG TABLET PO PRN (16:53)
[2023-07-16] MEDS ORDERED: COLI150V9 NEB (18:17)
[2023-07-17] VITALS (17 sets, daily range): BP systolic 100–128; BP diastolic 64–91; PULSE 87–116; RESP 2–32; TEMP 96.5–97.9
[2023-07-18] VITALS (18 sets, daily range): BP systolic 105–130; BP diastolic 53–87; PULSE 67–114; RESP 16–30; TEMP 97.2–98.2
[2023-07-19] VITALS (22 sets, daily range): BP systolic 102–133; BP diastolic 59–89; PULSE 70–96; RESP 16–22; TEMP 97–98.2
[2023-07-20] VITALS (22 sets, daily range): BP systolic 99–130; BP diastolic 62–91; PULSE 60–110; RESP 14–32; TEMP 97–97.8
[2023-07-20] MEDS: METHYLPREDNISOLONE SOD SUCC 40MG/ML (ACT-O-VIAL) IV SCH (08:17)
[2023-07-21] VITALS (21 sets, daily range): BP systolic 94–137; BP diastolic 56–82; PULSE 70–109; RESP 16–37; TEMP 97–97.5
[2023-07-21 10:36] LABS: BASOPHILS % 0.1 % (0.0-2.0); EOSINOPHILS % 2.6 % (0.0-5.0); HEMATOCRIT. 28.2 % (36.0-48.0); HEMOGLOBIN. 9.3 g/dL (12.0-16.0); MEAN CORPUSCULAR HEMOGLOBIN 30.6 pg (28.0-32.0); MEAN CORPUSCULAR HGB CONC 33.1 g/dL (31.0-37.0); MEAN CORPUSCULAR VOLUME 92.4 fL (81.0-99.0); MEAN PLATELET VOLUME 9.9 fl (7.4-10.4); MONOCYTES % 11.9 % (2.0-8.0); NEUTROPHILS % 71.4 % (40.0-76.0); PLATELET 185 x1000/uL (130-400); RED BLOOD CELL COUNT 3.05 mill/uL (4.2-5.4); RED CELL DISTRIBUTION WIDTH 15.5 % (11.6-14.6); WHITE BLOOD COUNT 10.2 x1000/uL (4.5-11.0)
[2023-07-21 10:54] LABS: CALCIUM 9.3 mg/dL (8.7-10.4); CARBON DIOXIDE 34 mEq/L (21-32); CHLORIDE 101 mEq/L (98-107); POTASSIUM 3.6 mEq/L (3.5-5.1); SODIUM 142 mEq/L (136-145)
[2023-07-21 11:00] LABS: GLUCOSE 168 mg/dL (70-105); UREA NITROGEN BLOOD 18 mg/dL (9-23)
[2023-07-21 11:42] LABS: CREATININE 0.4 mg/dL (0.6-1.0)
[2023-07-22] VITALS (19 sets, daily range): BP systolic 82–169; BP diastolic 46–108; PULSE 62–99; RESP 13–21; TEMP 96.4–98
[2023-07-23] VITALS (22 sets, daily range): BP systolic 90–154; BP diastolic 52–98; PULSE 56–92; RESP 12–29; TEMP 97.4–98; O2SAT 100
== END 2023-07-23 23:50 | DRG 130 ==
LOC: ER 12:11 → CVICU 16:53 → EDBEDREQ 17:05 → EDBEDREQTM 17:05 → 5EST 07-14 11:40
PROVIDERS: ADMIT Internal Medicine; ATTEND Internal Medicine
PROC: 0B21XFZ Change Tracheostomy Device in Trachea, External Approach (ICD-10-PCS; principal; 2023-07-07)
PROC: 5A1955Z Respiratory Ventilation, Greater than 96 Consecutive Hours (ICD-10-PCS; 2023-07-07)
PROC: 05H533Z Insertion of Infusion Device into Right Subclavian Vein, Percutaneous Approach (ICD-10-PCS; 2023-07-07)
PROC: 06HY33Z Insertion of Infusion Device into Lower Vein, Percutaneous Approach (ICD-10-PCS; 2023-07-07)
PROC: B546ZZA Ultrasonography of Right Subclavian Vein, Guidance (ICD-10-PCS; 2023-07-07)
PROC: B54BZZA Ultrasonography of Right Lower Extremity Veins, Guidance (ICD-10-PCS; 2023-07-07)
PROC: 0W9930Z Drainage of Right Pleural Cavity with Drainage Device, Percutaneous Approach (ICD-10-PCS; 2023-07-07)
PROC: 30233N1 Transfusion of Nonautologous Red Blood Cells into Peripheral Vein, Percutaneous Approach (ICD-10-PCS; 2023-07-10)
PROC: 0DP6XUZ Removal of Feeding Device from Stomach, External Approach (ICD-10-PCS; 2023-07-13)
PROC: 0DH63UZ Insertion of Feeding Device into Stomach, Percutaneous Approach (ICD-10-PCS; 2023-07-13)
PROC: 02HV33Z Insertion of Infusion Device into Superior Vena Cava, Percutaneous Approach (ICD-10-PCS; 2023-07-13)
PROC: B548ZZA Ultrasonography of Superior Vena Cava, Guidance (ICD-10-PCS; 2023-07-13)
DX: J95.03 Malfunction of tracheostomy stoma (principal); R65.21 Severe sepsis with septic shock; I21.A1 Myocardial infarction type 2; G82.50 Quadriplegia, unspecified; A41.9 Sepsis, unspecified organism; K94.23 Gastrostomy malfunction; E87.29 Other acidosis; J18.9 Pneumonia, unspecified organism; E87.1 Hypo-osmolality and hyponatremia; J96.02 Acute respiratory failure with hypercapnia; J96.01 Acute respiratory failure with hypoxia; J93.9 Pneumothorax, unspecified; F79 Unspecified intellectual disabilities; J44.0 Chronic obstructive pulmonary disease with (acute) lower respiratory infection; G40.909 Epilepsy, unspecified, not intractable, without status epilepticus; D64.9 Anemia, unspecified; Z99.11 Dependence on respirator [ventilator] status; Z88.8 Allergy status to other drugs, medicaments and biological substances; Z79.899 Other long term (current) drug therapy; Y83.8 Other surgical procedures as the cause of abnormal reaction of the patient, or of later complication, without mention of misadventure at the time of the procedure; Y82.8 Other medical devices associated with adverse incidents
CPT/HCPCS: 31500; 36415; 36573; 36600; 71045; 71250; 74018; 80048; 80053; 82375; 82550; 82553; 82607; 82728; 82746; 82805; 83540; 83550; 83605; 83735; 84100; 84145; 84484; 85025; 85044; 86850; 86900; 86920; 87070; 87077; 87186; 93005; 93306; 94002; 94003; 94640; 99291; A6261; C1725; C1893; C9113; J0456; J1650; J2060; J2185; J2543; J2704; J2920; J3370; J3475; J3480; J3490; J7030; J7060; J7131; J7608; P9016; Q9963; A4315